=== PATIENT | male | born 1950 | race Caucasian/White ===

== ENCOUNTER 2021-07-10 17:32 | Inpatient (IN) | payer MEDICARE, OTHER ==
[~2021-07-10] VITALS: Ht 167.6 cm; Wt 59.0 kg
[2021-07-10 17:57] VITALS: BP 116/70
[2021-07-10 19:44] LABS: BASO % 0.4 % (0.0-1.0); EOS # 0.3 10*3/uL (0.0-0.4); EOS % 3.8 % (1.0-4.0); HEMATOCRIT 42.4 % (42.0-52.0); LYMPH # 3.2 10*3/uL (1.3-4.4); LYMPH % 39.8 % (27.0-41.0); MEAN CORPUSCULAR HGB 32.7 pg (27.0-31.0); MEAN CORPUSCULAR HGB CONC 33.7 g/dl (33.0-37.0); MEAN PLATELET VOLUME 9.5 fl (9.6-12.3); MONO # 0.9 10*3/uL (0.1-1.0); MONO % 11.5 % (3.0-9.0); NEUT # 3.5 10*3/uL (2.3-7.9); NEUT % 43.9 % (47.0-73.0); PLATELET COUNT AUTOMATED 306 10*3/uL (130-400); RED BLOOD COUNT 4.37 10*6/uL (4.50-5.90); RED CELL DISTRI WIDTH 12.8 % (0-14.5)
[2021-07-10 20:00] LABS: ALKALINE PHOSPHATASE 77 U/L (45-117); BUN 22 mg/dl (7-24); CHLORIDE 108 mmol/L (98-107); CREATININE 1.21 mg/dL (0.70-1.30); POTASSIUM 4.8 mmol/L (3.5-5.1); SGOT/AST 20 IU/L (3-35); SGPT/ALT 26 U/L (12-78); SODIUM 139 mmol/L (136-145); TOTAL PROTEIN 7.3 gm/dL (6.4-8.2)
[2021-07-10 20:14] LABS: ETHYL ALCOHOL < 3.0 mg/dl (<3)
[2021-07-10 20:26] LABS: BILIRUBIN Negative (Negative); BLOOD Negative (Negative); CLARITY Clear (Clear); COLOR Yellow (Yellow); GLUCOSE Negative (Negative); KETONE Trace (Negative); LEUKO ESTERASE 1+ (Negative); NITRITE Negative (Negative); PH 5.5 (4.5-8.0); UROBILINOGEN 0.2 E.U./dl (0.0-1.0)
[2021-07-10 20:29] LABS: URINE AMPHETAMINES < 1000 (1000ng/ml); URINE BARBITURATES < 200 (200ng/ml); URINE BENZODIAZEPINES < 200 (200ng/ml); URINE CANNABINOIDS (THC) < 50 (50ng/ml); URINE COCAINE < 300 (300ng/ml); URINE METHADONE < 300 (300ng/ml); URINE OPIATES < 300 (300ng/ml)
[2021-07-10 20:36] LABS: URINE PHENCYCLIDINE < 25 (25ng/ml)
[2021-07-10 21:15] LABS: WBC 21-30 wbc/hpf (0-5)
[2021-07-10 21:16] LABS: BACTERIA 2+
[2021-07-10 22:20] VITALS: BP 119/77
[2021-07-10] MEDS ORDERED: CITALOPRAM20 MG PO (22:36)
[2021-07-10] MEDS ORDERED: DEPAKOTE SPRIN125 MG PO ×2 (22:37→22:38)
[2021-07-10] MEDS ORDERED: FLOMAX0.4 MG PO (22:39)
[2021-07-10] MEDS ORDERED: MELATONIN5 M7 PO (22:40)
[2021-07-10] MEDS ORDERED: MEMANTINE HCL E28 MG PO (22:40)
[2021-07-10] MEDS ORDERED: RIVASTIGMINE TAR6 M1 PO (22:42)
[2021-07-10] MEDS ORDERED: TAGAMET HB200 M1 PO (22:43)
[2021-07-10] MEDS ORDERED: VITAMIN D3125 MCG PO (22:44)
[2021-07-11 07:19] LABS: THYROID STIM HORMONE (HS) 7.9 uIU/ml (0.358-4.75); VALPROIC ACID (DEPAKENE) 17.2 ug/ml (50-100)
[2021-07-11 08:13] VITALS: BP 114/55
[2021-07-11 08:41] LABS: VITAMIN D, 25-HYDROXY 85.7 ng/mL (30-100)
[2021-07-11 14:00] VITALS: BP 114/55
[2021-07-11 20:00] VITALS: BP 112/73
[2021-07-12 07:54] VITALS: BP 112/62
[2021-07-12 20:00] VITALS: BP 109/67
[2021-07-13 07:48] VITALS: BP 116/75
[2021-07-13 19:28] VITALS: BP 132/76
[2021-07-14 07:45] VITALS: BP 98/73
[2021-07-14 20:00] VITALS: BP 128/74
[2021-07-15 07:32] VITALS: BP 117/84
[2021-07-15 20:00] VITALS: BP 149/82
[2021-07-16 07:45] VITALS: BP 110/68
[2021-07-16 20:00] VITALS: BP 129/87
[2021-07-17 08:17] VITALS: BP 109/87
[2021-07-17 20:00] VITALS: BP 115/63
[2021-07-18 08:16] VITALS: BP 110/69
[2021-07-18 20:00] VITALS: BP 111/64
[2021-07-19 07:17] VITALS: BP 102/70
[2021-07-19 19:08] VITALS: BP 107/70
[2021-07-20 08:00] VITALS: BP 106/72
[2021-07-20 19:25] VITALS: BP 119/55
[2021-07-21 08:00] VITALS: BP 110/64
[2021-07-21 19:10] VITALS: BP 118/82
[2021-07-22 07:35] VITALS: BP 101/55
[2021-07-22 08:00] VITALS: BP 101/55
[2021-07-22 20:00] VITALS: BP 111/68
[2021-07-23 07:40] VITALS: BP 124/78
[2021-07-23 20:00] VITALS: BP 118/64
[2021-07-24 07:51] VITALS: BP 141/79
[2021-07-24 20:00] VITALS: BP 135/69
[2021-07-25 08:31] VITALS: BP 124/77
[2021-07-25 20:00] VITALS: BP 134/82
[2021-07-26 07:11] VITALS: BP 101/52
[2021-07-26 19:06] VITALS: BP 120/72
[2021-07-27 07:29] VITALS: BP 108/75
[2021-07-27 17:54] LABS: BASO % 0.5 % (0.0-1.0); EOS # 0.3 10*3/uL (0.0-0.4); EOS % 4.2 % (1.0-4.0); HEMATOCRIT 41.9 % (42.0-52.0); LYMPH # 2.7 10*3/uL (1.3-4.4); LYMPH % 42.1 % (27.0-41.0); MEAN CELL VOLUME 99.3 fl (80.0-94.0); MEAN CORPUSCULAR HGB 33.2 pg (27.0-31.0); MEAN CORPUSCULAR HGB CONC 33.4 g/dl (33.0-37.0); MEAN PLATELET VOLUME 9.4 fl (9.6-12.3); MONO # 0.9 10*3/uL (0.1-1.0); MONO % 13.3 % (3.0-9.0); NEUT # 2.6 10*3/uL (2.3-7.9); NEUT % 39.6 % (47.0-73.0); PLATELET COUNT AUTOMATED 302 10*3/uL (130-400); RED BLOOD COUNT 4.22 10*6/uL (4.50-5.90); RED CELL DISTRI WIDTH 13.1 % (0-14.5); WHITE BLOOD COUNT 6.5 10*3/uL (4.8-10.8)
[2021-07-27 18:10] LABS: ALKALINE PHOSPHATASE 92 U/L (45-117); BUN 13 mg/dl (7-24); CHLORIDE 109 mmol/L (98-107); CREATININE 1.13 mg/dL (0.70-1.30); POTASSIUM 4.2 mmol/L (3.5-5.1); SGOT/AST 25 IU/L (3-35); SGPT/ALT 31 U/L (12-78); SODIUM 141 mmol/L (136-145); TOTAL PROTEIN 7.5 gm/dL (6.4-8.2)
[2021-07-27 18:32] LABS: BILIRUBIN Negative (Negative); BLOOD Negative (Negative); CLARITY Turbid (Clear); COLOR Yellow (Yellow); GLUCOSE Negative (Negative); KETONE Trace (Negative); LEUKO ESTERASE 1+ (Negative); NITRITE Negative (Negative); PH 7.5 (4.5-8.0)
[2021-07-27 20:00] VITALS: BP 143/82
[2021-07-28 07:22] VITALS: BP 105/71
[2021-07-28 20:00] VITALS: BP 124/53
[2021-07-29 07:15] VITALS: BP 104/67
[2021-07-29] MEDS ORDERED: MEMANTINE HCL10 MG PO (08:54)
[2021-07-29] MEDS ORDERED: RIVASTIGMINE1 EAC2 T (08:54)
[2021-07-29] MEDS ORDERED: MIRTAZAPINE15 M2 PO (08:54)
[2021-07-29] MEDS ORDERED: CLONAZEPAM1 MG PO (08:54)
[2021-07-29] MEDS ORDERED: RISPERIDONE1 MG PO (08:54)
[2021-07-29] MEDS ORDERED: DIVALPROEX SOD125 M1 PO ×2 (08:54)
[2021-07-29] MEDS ORDERED: Vitamin D (1,000 UNI PO (08:54)
[2021-07-29] MEDS ORDERED: ATORVASTATIN CA20 M1 PO (10:45)
== END 2021-07-29 13:20 | DRG 883 ==
LOC: ED 17:32 → 3N 21:19
PROVIDERS: Emergency Medicine; Psychiatry & Neurology Psychiatry; ADMIT Psychiatry & Neurology Psychiatry; ATTEND Psychiatry & Neurology Psychiatry
DX: F63.81 Intermittent explosive disorder (principal); F33.9 Major depressive disorder, recurrent, unspecified; N39.0 Urinary tract infection, site not specified; E44.1 Mild protein-calorie malnutrition; G30.9 Alzheimer's disease, unspecified; F41.9 Anxiety disorder, unspecified; N40.0 Benign prostatic hyperplasia without lower urinary tract symptoms; E78.5 Hyperlipidemia, unspecified; D75.89 Other specified diseases of blood and blood-forming organs; E87.8 Other disorders of electrolyte and fluid balance, not elsewhere classified; F02.80 Dementia in other diseases classified elsewhere, unspecified severity, without behavioral disturbance, psychotic disturbance, mood disturbance, and anxiety; Z20.822 Contact with and (suspected) exposure to COVID-19; Z00.8 Encounter for other general examination; Z68.20 Body mass index [BMI] 20.0-20.9, adult